=== PATIENT | female | born 1980 | race Two or more races ===

== ENCOUNTER 2016-09-18 14:36 | Emergency (ER) | payer BC ==
[~2016-09-18] VITALS: Ht 157.5 cm; Wt 51.7 kg
[2016-09-18 14:45] VITALS: BP 124/64
== END 2016-09-18 17:29 | disposition home or self-care (01) ==
LOC: ER 14:42
DX: N64.4 Mastodynia (principal); Z87.440 Personal history of urinary (tract) infections
CPT/HCPCS: 76642